=== PATIENT | female | born 1975 | race Caucasian/White ===

== ENCOUNTER 2024-04-27 12:10 | Emergency (ER) | payer BC ==
[~2024-04-27] VITALS: Ht 165.1 cm; Wt 59.9 kg
[2024-04-27] MEDS ORDERED: IBUPROFEN 800 MG TABLET ONE (13:43)
[2024-04-27] MEDS: IBUPROFEN 800 MG TABLET PO ONE (13:44)
[2024-04-27 13:49] VITALS: BP 106/54; O2SAT 99
== END 2024-04-27 13:49 | disposition home or self-care (01) ==
LOC: ER 12:10
DX: S82.891A Other fracture of right lower leg, initial encounter for closed fracture (principal); Z88.0 Allergy status to penicillin; X58.XXXA Exposure to other specified factors, initial encounter; Y93.89 Activity, other specified; Y92.89 Other specified places as the place of occurrence of the external cause; Y99.8 Other external cause status
CPT/HCPCS: 73610; A4606; A4663